=== PATIENT | female | born 1960 | race Caucasian/White ===

== ENCOUNTER 2018-08-07 17:18 | Emergency (ER) | payer MEDICAID ==
--- NOTE | 2018-08-07 19:10 | EDM.PDOC ---
ED HPI GENERAL MEDICAL PROBLEM - General Chief Complaint: Back Pain or Injury Stated Complaint: BACK PAIN Time Seen by Provider: 08/07/18 19:05 Source of Information: Reports: Patient History Limitations: Reports: No Limitations - History of Present Illness INITIAL COMMENTS - FREE TEXT/NARRATIVE: Presents with lower back pain radiating to legs bilaterally x 3 days since discontinuing Morphine. Patient had slowly weaned off the morphine and took her last dose 3 days ago. Her physician prescribed Gabapentin for the chronic pain instead. Has a history of L4-5 disc herniation. Duration: Day(s): (3) Location: Reports: Back Quality: Reports: Other (spasms) Severity: Moderate Lower Back Pain Score (Numeric/FACES): 10 - Related Data Allergies Allergy/AdvReac Type Severity Reaction Status Date / Time allopurinol Allergy Hives Verified 08/07/18 18:08 cephalexin [From Keflex] Allergy Hives Verified 08/07/18 18:08 Home Meds: Home Meds Gabapentin [Neurontin] 300 mg PO TID 08/07/18 [History] Past Medical History Genitourinary History: Reports: Chronic Renal Insuffiency Musculoskeletal History: Reports: Other (See Below) (chronic back pain) ED ROS GENERAL - Review of Systems Review Of Systems: See Below Constitutional: Reports: No Symptoms HEENT: Reports: No Symptoms Respiratory: Reports: No Symptoms Cardiovascular: Reports: No Symptoms Endocrine: Reports: No Symptoms GI/Abdominal: Reports: No Symptoms Musculoskeletal: Reports: Back Pain (low) Skin: Reports: No Symptoms Neurological: Reports: No Symptoms Psychiatric: Reports: No Symptoms Hematologic/Lymphatic: Reports: No Symptoms Immunologic: Reports: No Symptoms ED EXAM,LOWER BACK PAIN/INJURY - Physical Exam Exam: See Below Exam Limited By: No Limitations General Appearance: Alert, WD/WN, No Apparent Distress Ears: Normal External Exam Nose: Normal Inspection Throat/Mouth: No Airway Compromise Head: Atraumatic, Normocephalic Neck: Full Range of Motion Respiratory/Chest: No Respiratory Distress Back Exam: Paraspinal Tenderness (lumbar), Vertebral Tenderness (lumbar) Extremities: Normal Range of Motion Neurological: Alert, Normal Mood/Affect, No Motor/Sensory Deficits Psychiatric: Normal Affect, Normal Mood Skin Exam: Warm, Dry, Intact Course - Vital Signs Last Recorded V/S: Last Vital Signs Temp 36.8 C 08/07/18 18:00 Pulse 63 08/07/18 19:34 Resp 18 08/07/18 19:34 BP 147/71 H 08/07/18 19:34 Pulse Ox 98 08/07/18 19:34 - Orders/Labs/Meds Meds: Medications Discontinued Medications Generic Name Dose Route Start Last Admin Trade Name Shalini PRN Reason Stop Dose Admin Hydromorphone HCl 1 mg 08/07/18 19:21 08/07/18 19:34 Dilaudid IM 08/07/18 19:22 1 mg ONETIME ONE Administration Ketorolac Tromethamine 60 mg 08/07/18 19:05 08/07/18 19:22 Toradol IM 08/07/18 19:06 Not Given ONETIME ONE - Re-Assessments/Exams Free Text/Narrative Re-Assessment/Exam: 08/07/18 21:06 Symptoms have markedly improved after Dilaudid 1mg IM Departure - Departure Time of Disposition: 21:06 Disposition: Home, Self-Care 01 Condition: Good Clinical Impression: Sciatica Qualifiers: Laterality: bilateral Qualified Code(s): M54.31 - Sciatica, right side; M54.32 - Sciatica, left side - Discharge Information *PRESCRIPTION DRUG MONITORING PROGRAM REVIEWED*: Yes *COPY OF PRESCRIPTION DRUG MONITORING REPORT IN PATIENT KAYLIE: No Instructions: Sciatica, [id number] Referrals: PCP,Not In Area [Primary Care Provider] - Forms: ED Department Discharge Additional Instructions: Follow up with your primary physician in 2-3 days. Return to the ER if symptoms worsen.
[2018-08-07] MEDS: Ketorolac 60 MG/2 ML SDV IM ONE (19:22)
[2018-08-07] MEDS: HYDROmorphone 2 MG/ML SDV IM ONE (19:34)
== END 2018-08-07 21:15 | disposition home or self-care (01) ==
LOC: FB.ED 17:18
DX: M54.41 Lumbago with sciatica, right side (principal); M54.42 Lumbago with sciatica, left side; N18.9 Chronic kidney disease, unspecified; Z88.8 Allergy status to other drugs, medicaments and biological substances; Z79.899 Other long term (current) drug therapy
CPT/HCPCS: 96372; 99282; J1170